=== PATIENT | female | born 1990 | race American Indian/Alaskan Native ===

== ENCOUNTER → 2018-05-05 | Emergency (ER) | payer MEDICAID, OTHER ==
[~2018-05-05] VITALS: Ht 157.5 cm; Wt 85.0 kg
[~2018-05-05] MED LIST: LORA10TA7 PO; ONDA8TAB9 PO; PRED10TA23 PO; dexamethasone sod phosphate 10mg/ml inj IM STA
[2018-05-05 21:06] VITALS: BP 160/109
== END | disposition home or self-care (01) ==
LOC: ER 21:04
DX: L50.9 Urticaria, unspecified (principal); Z88.6 Allergy status to analgesic agent; Z79.899 Other long term (current) drug therapy
CPT/HCPCS: 96372; 99283; J1100

== ENCOUNTER 2020-10-08 20:24 | Emergency (ER) | payer MEDICAID ==
[~2020-10-08] VITALS: Ht 157.5 cm; Wt 72.7 kg
[~2020-10-08 20:24] MED LIST changes: -PRED10TA23 PO; -dexamethasone sod phosphate 10mg/ml inj IM STA
[2020-10-08] MEDS ORDERED: diphenhydrAMINE 25mg capsule PO ONE (20:30)
--- NOTE | 2020-10-08 21:18 | NUR ---
Patient feels like she is on fire and chest is still tight, Dr. Chung advised.
--- NOTE | 2020-10-08 21:41 | NUR ---
lungs still clear bilaterally. no wheeze or stridor appreciated. no tongue swelling. pt does have mild to moderate periorbital swelling.
[2020-10-08] MEDS ORDERED: PRED20TA PO (23:16)
[2020-10-08] MEDS ORDERED: methylPREDNISolone sod succ 125mg/2ml vial IV ONE (23:20)
[2020-10-08 23:41] VITALS: BP 118/78
== END 2020-10-08 23:45 | disposition home or self-care (01) ==
LOC: ER 20:26
DX: T78.40XA Allergy, unspecified, initial encounter (principal); F17.210 Nicotine dependence, cigarettes, uncomplicated; Z88.6 Allergy status to analgesic agent
CPT/HCPCS: 96374; 99284; J2930; Q0163

== ENCOUNTER 2023-11-21 13:37 | Emergency (ER) | payer MEDICAID ==
[~2023-11-21] VITALS: Ht 157.5 cm; Wt 59.1 kg
[~2023-11-21 13:37] MED LIST changes: +ONDA4TAB6 PO
[2023-11-21] MEDS: LIDOcaine 1% 30ml preserv. free vial IJ STA (14:40)
[2023-11-21 14:45] VITALS: PULSE 96; O2SAT 100
[2023-11-21 15:07] VITALS: BP 116/97; RESP 14; TEMP 98.3
== END 2023-11-21 15:17 | disposition home or self-care (01) ==
LOC: ER 13:38
DX: S81.812A Laceration without foreign body, left lower leg, initial encounter (principal); Z88.6 Allergy status to analgesic agent; Z79.899 Other long term (current) drug therapy; W14.XXXA Fall from tree, initial encounter; Y93.89 Activity, other specified; Y92.89 Other specified places as the place of occurrence of the external cause; Y99.8 Other external cause status
CPT/HCPCS: 12002; 99282; J3490; J7030; A6449